=== PATIENT | female | born 1965 | race Caucasian/White ===

== ENCOUNTER → 2016-05-17 | Outpatient (CLI) | payer OTHER ==
--- NOTE | 2016-05-17 12:51 | DIAGNOSTIC IMAGING REPORT ---
PROCEDURE: MG BILATERAL SCREENING W/CAD INDICATION: Screening. Family history breast carcinoma (aunt, cousin). TECHNIQUE: Bilateral CC and MLO digital views. COMPARISON: Compared to 07/20/2009. FINDINGS: Computer-aided detection applied. Dense parenchymal pattern with a few dystrophic calcifications. There has been development of a 2.8 cm lobulated nodular density in the lateral left breast (0330 position, anterior third). There are diminishing nodular densities in the medial left breast. There is a vague 1.8 cm density in the upper right breast (seen only on the MLO view) with possible associated calcifications. IMPRESSION: 1. There has been development of a 2.8 cm nodular density in the lateral left breast. While this may represent a cyst, underlying solid mass should also be considered. Further mammographic views (true lateral view, CC and MLO spot compression views) are recommended. In addition, left breast ultrasound is recommended. 2. Findings suggest a 1.8 cm density with calcifications in the upper right breast (seen only on MLO view). While this may represent normal asymmetric parenchyma, underlying mass should also be considered. Further mammographic views (true lateral view, CC and MLO spot compression views are recommended. In addition, right breast ultrasound is recommended. RESULT CODE: 0- Incomplete; needs additional evaluation. A. A negative report should not delay biopsy if a dominant or clinically suspicious mass is present. 10-15% of cancers are not identified by x-ray. B. A negative report may reinforce clinical impression. C. Adenosis and dense breasts may obscure an underlying neoplasm. D. False positive reports average 6-10%. E.. A yearly screening mammogram is recommended. A reminder letter will be scheduled.
== END ==
LOC: MAM SRH 09:09
DX: Z12.31 Encounter for screening mammogram for malignant neoplasm of breast (principal); Z80.3 Family history of malignant neoplasm of breast

== ENCOUNTER 2016-05-28 10:46 | Outpatient (CLI) | payer OTHER ==
--- NOTE | 2016-05-28 13:02 | DIAGNOSTIC IMAGING REPORT ---
PROCEDURE: MG BILATERAL DIAGNOSTIC W/CAD INDICATION: Evaluate left breast nodule and right breast calcifications. TECHNIQUE: True lateral digital views of bilateral breasts. In addition, spot compression CC and MLO views were obtained of the lower outer left breast with CC and MLO magnification views of the central right breast. (region of clinical concern). Finally, high-resolution bilateral breast ultrasound was performed ( 18 mHz). COMPARISON: Comparison is made to screening mammogram studies on 05/17/2016 and 07/20/2009. FINDINGS: MAMMOGRAM: Computer-aided detection applied. Right mammogram: Dense parenchymal pattern. Confirmation of a few scattered regional microcalcifications in the central right breast. No evidence of suspicious clustered microcalcifications. Left mammogram: Dense parenchymal pattern. Confirmation of a 3.2 x 2.0 cm lobulated nodular density in the lower outer left breast (0330 position, anterior third). BREAST ULTRASOUND: Right ultrasound: Mild to moderate ductal ectasia in the retroareolar right breast with a 0.7 cm cyst in the lateral right breast. Left ultrasound: Confirmation of a 2.8 x 1.7 cm lobulated/septated proteinaceous cyst in the lower outer left breast which corresponds to the mammographic nodule. IMPRESSION: 1. Negative right mammogram and right breast ultrasound with mild to moderate retroareolar ductal ectasia. 2. Confirmation of a 3.2 x 2.8 cm septated proteinaceous cyst in the lower outer left breast which may represent low grade inflammation. Cyst aspiration may be of assistance in confirming. 3. Findings discussed with the patient and called to JERRY Aj. RESULT CODE: 2- Benign finding(s). A. A negative report should not delay biopsy if a dominant or clinically suspicious mass is present. 10-15% of cancers are not identified by x-ray. B. A negative report may reinforce clinical impression. C. Adenosis and dense breasts may obscure an underlying neoplasm. D. False positive reports average 6-10%. E.. A yearly screening mammogram is recommended. A reminder letter will be scheduled.
== END 2016-05-28 23:00 ==
LOC: MAM SRH 10:46
DX: N60.41 Mammary duct ectasia of right breast (principal); N60.02 Solitary cyst of left breast

== ENCOUNTER 2016-06-05 12:57 | Outpatient (CLI) | payer OTHER ==
--- NOTE | 2016-06-05 15:10 | DIAGNOSTIC IMAGING REPORT ---
PROCEDURE: US BREAST CYST ASPIRATION-LEFT INDICATION: CYST IN LOWER OUTER LEFT BREAST TECHNIQUE: Informed consent was obtained and the patient was informed of the usual risks and complications including infection, bleeding, and allergy. Supine RPO position. COMPARISON: None. FINDINGS: Following sterile preparation and 1% lidocaine local anesthetic, ultrasound guidance was utilized to place a 16-gauge needle into a lower outer left breast 3.2 cm septated cyst. Approximately 6 ml of greenish/hemorrhagic fluid was aspirated from three separate adjacent /septated cysts. Fluid specimens placed in [facility] and transferred to the lab for cytology. The patient tolerated the procedure reasonably well and was discharged home in satisfactory condition with instructions to call for any untoward symptoms. IMPRESSION: 1. Successful ultrasound-guided aspiration of left breast cysts. 2. Cytology studies are pending.
== END 2016-06-05 23:00 ==
LOC: US SRH 12:57
PROC: 0H9U3ZX Drainage of Left Breast, Percutaneous Approach, Diagnostic (ICD-10-PCS; principal; 2016-06-05)
DX: N60.02 Solitary cyst of left breast (principal)